=== PATIENT | female | born 1945 | race Caucasian/White ===

== ENCOUNTER → 2020-11-29 | Day surgery (SDC) | payer OTHER ==
--- NOTE | 2020-11-29 10:09 | RAD REPORT ---
EXAM DESCRIPTION: Ultrasound-guided left axilla core biopsy CLINICAL HISTORY: Left axillary mass N63.20 COMPARISON: No comparisons FINDINGS: Informed consent was obtained and time-out was performed. The patient's left breast/axilla was prepped and draped in the usual sterile fashion. 1% lidocaine wa s used for local anesthetic purposes. Utilizing aseptic technique and ultrasound guidance, a 18 gauge core biopsy device was used to obtain 2 core specimens through the 13 mm mass of interest in the left axilla. All collected material was sent for cytology. Patient tolerated procedure well. IMPRESSION: Successful ultrasound guided left axillary mass core biopsy.
== END ==
LOC: DS 09:00
PROVIDERS: ATTEND Family Medicine
DX: N63.20 Unspecified lump in the left breast, unspecified quadrant (principal)
CPT/HCPCS: 19083; 88305

== ENCOUNTER 2023-12-07 15:23 | Observation (INO) | payer OTHER ==
--- OUTSIDE RECORDS SUMMARY | 2023-12-07 15:26 | XMS REPORT | Continuity of Care Document ---
Author Name Unknown Address [address] [place] [address] [email or web address] Address [address] [place] [address] Care Team Providers Care [employer] Boss Name Role Phone Ozzie Franklin Attending Clinician Unavailable LUKAS HOPPER Attending Clinician Unavailable Payers Payer Name Policy Type Policy Number Effective Date Expirati on Date Source MEDICARE PART A \T\ [id number] 2011 00:00:00 Problems Condition Name Condition Details Condition Category Status Onset Date Resolution Date Last Treatment Date Treating Clinician Comments Source [id number] Recurrent gross hematuria Problem [facility] [id number] Kidney lesion, [place], right Problem [facility] [id number] Simple renal cyst Problem [facility] [id number] Cyst of right kidney Problem [facility] [id number] Gross hematuria Problem [facility] [id number] Lower urinary tract symptoms (LUTS) Problem [facility] Allergies, Adverse Reactions, Alerts Allergy Name Allergy Type Status Severity Reaction(s) Onset Date Inactive Date Treating Clinician Comments Source NO KNOWN ALLERGIE S Drug Class Active [facility] Social History Social Habit Start Date Stop Date Quantity Comments Source History of Tobacco Use [facility]igned At [facility] Smoking Status Start Date Stop Date Source Never Smoker [facility] Medications Ordered Medication Name Filled Medication Name Start Date Stop Date Current Medication? Ordering Clinician Indication Dosage Frequency Signature (SIG) Comments Components Source Ramipril 10 MG Ramipril 10 MG No 1{capsu le} QD Ramipril 10 MG Janumet 50-1000 MG Janumet 50-1000 MG No 1{table t_with_ meals} BID Janumet 50-1000 MG Carvedilol 12.5 MG Carvedilol 12.5 MG No 1{table t_with_ food} BID Carvedilol 12.5 MG Levothyroxi ne Sodium 100 MCG Levothyroxi ne Sodium 100 MCG No QD Levothyrox ine Sodium 100 MCG Ramipril 10 MG Ramipril 10 MG No 1{capsu le} QD Ramipril 10 MG Janumet 50-1000 MG Janumet 50-1000 MG No 1{table t_with_ meals} BID Janumet 50-1000 MG Carvedilol 12.5 MG Carvedilol 12.5 MG No 1{table t_with_ food} BID Carvedilol 12.5 MG Levothyroxi ne Sodium 100 MCG Levothyroxi ne Sodium 100 MCG No QD Levothyrox ine Sodium 100 MCG Levothyroxi ne Sodium 100 MCG Levothyroxi ne Sodium 100 MCG No QD Levothyrox ine Sodium 100 MCG Carvedilol 12.5 MG Carvedilol 12.5 MG No 1{table t_with_ food} BID Carvedilol 12.5 MG Janumet 50-1000 MG Janumet 50-1000 MG No 1{table t_with_ meals} BID Janumet 50-1000 MG Ramipril 10 MG Ramipril 10 MG No 1{capsu le} QD Ramipril 10 MG Levothyroxi ne Sodium 100 MCG Levothyroxi ne Sodium 100 MCG No QD Levothyrox ine Sodium 100 MCG Carvedilol 12.5 MG Carvedilol 12.5 MG No 1{table t_with_ food} BID Carvedilol 12.5 MG Janumet 50-1000 MG Janumet 50-1000 MG No 1{table t_with_ meals} BID Janumet 50-1000 MG Ramipril 10 MG Ramipril 10 MG No 1{capsu le} QD Ramipril 10 MG Vital Signs Vital Name Observation Time Observation Value Comments S ource height 2023-08-09 14:15:00 62 [in_i] Commo n [facility] weight 2023-08-09 14:15:00 164 [lb_av] Comm on [facility] temperature 2023-08-09 14:15:00 97.5 [degF] Com mon [facility] bmi 2023-08-09 14:15:00 29.99 kg/m2 Comm on [facility] oximetry 2023-08-09 14:15:00 96 % Commo n [facility] respiratory rate 2023-08-09 14:15:00 16 /min Common [facility] blood pressure systolic 2023-08-09 14:15:00 139 mm[Hg] [facility] blood pressure diastolic 2023-08-09 14:15:00 65 mm[Hg] Common [facility] height 2023-08-04 13:30:00 62 [in_i] Commo n [facility] weight 2023-08-04 13:30:00 163.6 [lb_av] Co mmon [facility] temperature 2023-08-04 13:30:00 97.6 [degF] Com mon [facility] bmi 2023-08-04 13:30:00 29.92 kg/m2 Comm on [facility] oximetry 2023-08-04 13:30:00 95 % Commo n [facility] respiratory rate 2023-08-04 13:30:00 18 /min Common [facility] blood pressure systolic 2023-08-04 13:30:00 141 mm[Hg] Common [facility] blood pressure diastolic 2023-08-04 13:30:00 65 mm[Hg] [facility] Procedures Procedure Date / Time Performed Performing Clinicia n Source PVR 2023-08-04 00:00:00 Common [facility] Encounters Start Date/Time End Date/Time Encounter Type Admission Type Attending Clinicians Care Facility Care Department Encounter ID Source 2023-10-07 10:52:01 Outpatient Ozzie Franklin [facility] [id number] [facility] 2023-08-09 13:03:01 Outpatient Ozzie Franklin [facility] [id number] [facility] 2023-08-04 12:58:00 Outpatient Ozzie Franklin [facility] [id number] [facility] 2023-08-25 00:00:00 2023-08-25 00:00:00 OFFICE VISIT ESTAB PT LEVEL 3 [facility] [id number] [facility] 2023-08-09 00:00:00 2023-08-09 00:00:00 (PROC) Procedure [facility] [id number] [facility] 2023-08-04 00:00:00 2023-08-04 00:00:00 OFFICE VISIT NEW PT LEVEL 3 [facility] [id number] [facility] 2020-07-24 12:50:00 2020-07-24 12:50:[address] [facility] [id number] [facility] 2020-06-26 12:20:00 2020-06-26 12:20:[address] [facility] [id number] [facility]
[2023-12-07] MEDS ORDERED: ONDANSETRON 4 MG/2 ML VIAL ONE (19:05)
[2023-12-07] MEDS ORDERED: MORPHINE 2 MG/ML SYR ONE (19:05)
[2023-12-07] MEDS ORDERED: FAMOTIDINE 20 MG/2 ML VIAL IV ONE (19:06)
[2023-12-07] MEDS ORDERED: NA CHLORIDE 0.9% 500 ML ONE (19:06)
[2023-12-07 19:41] LABS: PT Prothrombin Time 12.5 SECONDS (9.4-12.5); Protime INR 1.14
[2023-12-07 22:15] LABS: Sqamous Epithelial None Seen /HPF (None Seen); Urine Bacteria None Seen /HPF (<20); Urine Micro Reflex YN NO BILL MICROSCOPIC; Urine RBC >50 /HPF (None Seen); Urine WBC Clump Many /HPF (None Seen); Urine Yeast (Budding) Many /HPF (None Seen)
[2023-12-07 23:00] LABS: Specific Gravity 1.022 (1.005-1.030); Urine Bilirubin NEGATIVE (Negative); Urine Blood 2+ (Negative); Urine Clarity Extremely Turbid (Clear); Urine Color Light-Orange (Yellow); Urine Glucose 4+ (Over) (Negative); Urine Ketones 3+ (Negative); Urine Nitrite NEGATIVE (Negative); Urine Protein TRACE (Negative); Urine Urobilinogen Normal (Normal)
[2023-12-07 23:06] LABS: Absolute Basophils 0.2 K/uL (0-0.5); Absolute Lymphocytes (CBC) 2.1 K/uL (0.7-4.9); Absolute Monocytes 1.4 K/uL (0.1-1.3); Absolute Neutrophil 15.9 K/uL (1.8-8.0); Basophils % 0.9 % (0-1.3); Eosinophils % 0.1 % (0-4.4); Hematocrit 37.8 % (36.0-45.0); Hemoglobin 12.7 g/dL (12.0-15.0); Lymphocytes % 10.8 % (15.3-44.8); MCH 31.5 pg (27.0-35.0); MCHC 33.7 g/dL (32.0-36.0); MCV 93.4 fL (80-100); MPV 8.2 fL (7.6-11.3); Monocytes % 7.3 % (3.3-12.3); Neutrophils % 80.9 % (41.7-73.7); Platelets 345 thou/uL (152-406); RBC Red Blood Cell Count 4.04 M/uL (3.86-4.86); Red Cell Distribution Width 13.5 % (12.1-15.2)
[2023-12-07 23:29] LABS: Albumin 2.7 g/dL (3.4-5.0); Albumin/Globulin Ratio 0.5 (1.1-1.8); Alkaline Phosphatase 69 U/L (45-117); Anion Gap 15.9 mEq/L (5.0-15.0); BUN Blood Urea Nitrogen 43 mg/dL (7-18); Bicarbonate 20 mEq/L (21-32); Bilirubin Direct 0.2 mg/dL (0-0.2); Bilirubin Indirect, Calculated 0.8 mg/dL (0.2-0.8); Globulin 5.2 g/dL (2.3-3.5); Glomerular Filtration Rate 59 ml/min (=/>90); Glucose Level 206 mg/dL (74-106); Lipase 38 U/L (13-75); Magnesium 2.1 mg/dL (1.6-2.4); Potassium 3.9 mEq/L (3.5-5.1); Protein, Total 7.9 g/dL (6.4-8.2); Sodium Level 132 mEq/L (136-145); Troponin High Sensitivity 10.5 pg/mL (<58.9)
[2023-12-07 23:30] LABS: ALT/SGPT < 14 U/L (13-56); AST/SGOT < 10 U/L (15-37)
--- NOTE | 2023-12-08 00:50 | ER ---
Nurse's Notes [facility] Name: Laurie Trammell Age: 78 yrs Sex: Female : 1945 Arrival Date: 12/07/2023 Time: 15:23 Bed 28 Private MD: Diagnosis: Left sided colitis without complications;Sepsis, unspecified organism Presentation: 12/06 15:39 Chief complaint: Patient states: nausea, vomiting x2 days. Coronavirus screen: At this as6 time, the client does not indicate any symptoms associated with coronavirus-19. Ebola Screen: No symptoms or risks identified at this time. Initial Sepsis Screen: Does the patient meet any 2 criteria? No. Patient's initial sepsis screen is negative. Does the patient have a suspected source of infection? No. Patient's initial sepsis screen is negative. Risk Assessment: Do you want to hurt yourself or someone else? Patient reports no desire to harm self or others. Onset of symptoms was December 05, 2023. 15:39 Method Of Arrival: Ambulatory as6 15:39 Acuity: NOEMY 3 as6 Triage Assessment: 15:41 General: Appears in no apparent distress. Behavior is calm, cooperative. Pain: as6 Complains of pain in epigastric area. GI: Reports upper abdominal pain, nausea, vomiting. Historical: - Allergies: 15:40 No Known Allergies; as6 - PMHx: 15:40 Diabetes - NIDDM; Hypertension; as6 - PSHx: 15:40 None; as6 - Immunization history:: Adult Immunizations up to date. - Infectious Disease History:: Denies. - Social history:: Smoking status: Patient denies any tobacco usage or history of. Screenin:[facility] Fall Risk Assessment (Adult) History of falling in the last 3 months, ha1 including since admission No falls in past 3 months (0 pts) Confusion or Disorientation No (0 pts) Intoxicated or Sedated No (0 pts) Impaired Gait No (0 pts) Mobility Assist Device Used Yes (1 pt) Altered Elimination No (0 pt) Score/Fall Risk Level 0 - 2 = Low Risk Oriented to surroundings, Maintained a safe environment, Educated pt \T\ family on fall prevention, incl call for assistance when getting out of bed, Hourly rounding (assess needs \T\ fall precautionary measures) done. Abuse screen: Denies threats or abuse. Denies injuries from another. Nutritional screening: No deficits noted. Tuberculosis screening: No symptoms or risk factors identified. Assessment: 19:00 General: Appears uncomfortable, Behavior is calm, cooperative. Pain: Complains of pain ha1 in epigastric area Pain does not radiate. Pain currently is 8 out of 10 on a pain scale. Quality of pain is described as burning, pressure, Pain began gradually, 2-3 days ago. Neuro: Level of Consciousness is awake, alert, obeys commands, Oriented to person, place, time, situation. Cardiovascular: Capillary refill < 3 seconds Patient's skin is warm and dry. Respiratory: Airway is patent Respiratory effort is even, unlabored, Respiratory pattern is regular, symmetrical. GI:. GI: Abdomen is round non-distended, Bowel sounds present X 4 quads. Reports epigastric pain, nausea, vomiting. : No signs and/or symptoms were reported regarding the genitourinary system. Derm: Skin is pink, warm \T\ dry. 20:00 Reassessment: Patient and/or family updated on plan of care and expected duration. Pain ha1 level reassessed. Patient is alert, oriented x 3, equal unlabored respirations, skin warm/dry/pink. pain 2/10 Patient states feeling better. Patient states symptoms have improved. 21:00 Reassessment: Patient and/or family updated on plan of care and expected duration. Pain ha1 level reassessed. Patient is alert, oriented x 3, equal unlabored respirations, skin warm/dry/pink. 22:00 Reassessment: Patient and/or family updated on plan of care and expected duration. Pain ha1 level reassessed. Patient is alert, oriented x 3, equal unlabored respirations, skin warm/dry/pink. 23:00 Reassessment: Patient and/or family updated on plan of care and expected duration. Pain ha1 level reassessed. Patient is alert, oriented x 3, equal unlabored respirations, skin warm/dry/pink. Vital Signs: 15:39 BP 115 / 61; Pulse 115; Resp 18; Temp 97.1; Pulse Ox 99% ; Weight 68.04 kg; Height 5 as6 ft. 2 in. ; Pain 8/10; 19:20 BP 132 / 68; Pulse 93; Resp 17 S; Pulse Ox 99% on R/A; ha1 20:20 BP 127 / 60; Pulse 97; Resp 18 S; Pulse Ox 99% on R/A; ha1 21:30 BP 129 / 69; Pulse 99; Resp 20; Pulse Ox 100% on R/A; ha1 22:00 BP 130 / 68; Pulse 102; Resp 17 S; Pulse Ox 99% on R/A; ha1 23:00 BP 146 / 74; Pulse 99; Resp 17 S; Pulse Ox 99% on R/A; ha1 12/07 00:00 BP 149 / 72; Pulse 92; Resp 17 S; Pulse Ox 98% on R/A; ha1 00:45 BP 152 / 80; Pulse 96; Resp 17 S; Pulse Ox 99% on R/A; ha1 01:59 BP 141 / 75; Pulse 94; Resp 17; Temp 97.1; Pulse Ox 99% ; Pain 0/10; ha1 12/06 15:39 Body Mass Index 27.44 (68.04 kg, 157.48 cm) as6 12/06 15:39 Pain Scale: Adult as6 01:59 Pain Scale: Adult ha1 Marne Coma Score: 01:59 Eye Response: spontaneous(4). Motor Response: obeys commands(6). Verbal Response: ha1 oriented(5). Total: 15. ED Course: 12/06 15:27 Patient arrived in ED. mg5 15:40 Triage completed. as6 15:41 Arm band placed on left wrist. as6 15:42 Santos Hercules PA is PHCP. cp 15:42 Rodney Tran DO is Attending Physician. cp 19:00 Patient has correct armband on for positive identification. Bed in low position. Call ha1 light in reach. Side rails up X 1. Adult w/ patient. 19:05 Inserted saline lock: 20 gauge in left antecubital area, using aseptic technique. Blood ha1 collected. 19:35 EKG done, by ED staff, reviewed by Santos POLK. oe 21:33 Chest Single View In Process Unspecified. EDMS 21:45 Roxanna Greenberg, TENISHA is Primary Nurse. ha1 23:58 CT Abd/Pelvis - IV Contrast Only In Process Unspecified. EDMS 12/07 00:49 Ozzie Franklin MD is Hospitalizing Provider. cp 01:10 First set of blood cultures drawn by ED staff. ha1 01:25 Second set of blood cultures drawn by ED staff. ha1 01:58 No provider procedures requiring assistance completed. Patient admitted, IV remains in ha1 place. 01:59 Provided Education on: need for admission. ha1 Administered Medications: 12/06 19:10 Drug: NS 0.9% IV 500 ml IV at 500 ml/hr continuous Route: IV; Rate: 500 ml/hr; Site: ha left antecubital; 12/07 01:57 Follow up: Response: No adverse reaction; IV Status: Completed infusion; IV Intake: ha1 500ml 12/06 19:12 Drug: Famotidine IVP 20 mg IVP once; dilute with 10 mL 0.9% NaCl; give over 2 minutes [facility] Route: IVP; Site: left antecubital; 12/07 01:58 Follow up: Response: No adverse reaction [facility] 12/06 19:14 Drug: Ondansetron IVP 4 mg IVP once; over 2 minutes Route: IVP; Site: left antecubital; [facility] 12/07 01:58 Follow up: Response: No adverse reaction [facility] 12/06 19:22 Not Given (Patient Refused): morphineor iv 2 mg IVP once over 4 mins [facility] 12/07 01:25 Drug: metroNIDAZOLE IVPB 500 mg 100 ml IVPB once over 30 mins Volume: 100 ml; Route: ha1 IVPB; Infused Over: 30 mins; Site: left antecubital; 01:57 Follow up: Response: No adverse reaction; IV Status: Completed infusion; IV Intake: ha1 100ml 01:57 Drug: Ciprofloxacin IVPB 400 mg 200 ml IVPB once over 60 mins Volume: 200 ml; Route: ha1 IVPB; Infused Over: 60 mins; Site: left antecubital; 02:00 Follow up: Response: No adverse reaction; IV Status: Infusion continued upon admission [facility] Medication: 12/06 19:41 VIS not applicable for this client. ha1 Intake: 12/07 01:57 IV: 100ml; Total: 100ml. ha 01:57 IV: 500ml; Total: 600ml. 1 Outcome: 00:50 Decision to Hospitalize by Provider. cp 01:59 Admitted to ER Hold. [facility]. ha05 31:59 Condition: stable 01:59 Instructed on the need for admit, 13:37 Patient left the ED. eb Signatures: Dispatcher [employer] EDMS Satnos Hercules PA PA cp Espinosa, Orlando oe Botello, Elizabeth eb Slawson, Ashby, RN RN as6 Roxanna Greenberg RN RN ha1 [place] [id number]
--- NOTE | 2023-12-08 00:51 | EDPHYS ---
Physician Documentation [facility] Name: Laurie Trammell Age: 78 yrs Sex: Female : 1945 Arrival Date: 12/07/2023 Time: 15:23 Bed 28 Private MD: ED Physician Rodney Tran HPI: 12/06 18:54 This 78 yrs old Female presents to ER via Ambulatory with complaints of Nausea/Vomiting.cp 18:55 The patient presents to the emergency department with nausea, that is moderate, cp vomiting, that is intermittent, abdominal pain. Onset: The symptoms/episode began/occurred 2 day(s) ago. 18:55 Possible causes: unknown. Associated signs and symptoms: Pertinent positives: anorexia, cp diarrhea, Pertinent negatives: constipation, fever. Severity of symptoms: in the emergency department the symptoms are unchanged despite home interventions. Historical: - Allergies: 15:40 No Known Allergies; as6 - PMHx: 15:40 Diabetes - NIDDM; Hypertension; as6 - PSHx: 15:40 None; as6 - Immunization history:: Adult Immunizations up to date. - Infectious Disease History:: Denies. - Social history:: Smoking status: Patient denies any tobacco usage or history of. ROS: 18:57 Constitutional: Positive for poor PO intake, Negative for body aches, chills, fever, cp 18:57 Abdomen/GI: Positive for abdominal pain, nausea and vomiting, diarrhea, anorexia, cp Negative for constipation, hematemesis, 18:57 Eyes: Negative for injury, pain, redness, and discharge, cp 18:57 Cardiovascular: Positive for chest pressure, Negative for edema, palpitations, 18:57 Respiratory: Negative for cough, shortness of breath, wheezing, 18:57 Neuro: Negative for altered mental status, 18:57 All other systems are negative, cp Exam: 19:00 Constitutional: The patient appears in no acute distress, alert, awake, cp non-diaphoretic, non-toxic, well developed, well nourished, 19:00 Head/Face: Normocephalic, atraumatic. cp 19:00 Eyes: Periorbital structures: appear normal, Conjunctiva: normal, no exudate, no injection, Sclera: no appreciated abnormality, Lids and lashes: appear normal, bilaterally, 19:00 ENT: External ear(s): are unremarkable, Nose: is normal, Mouth: Lips: moist, Oral mucosa: pink and intact, moist, Posterior pharynx: is normal, airway is patent, no erythema, no exudate, 19:00 Chest/axilla: Inspection: normal, 19:00 Cardiovascular: Rate: tachycardic, Rhythm: regular, Edema: is not appreciated, JVD: is not appreciated, 19:00 Respiratory: the patient does not display signs of respiratory distress, Respirations: normal, no use of accessory muscles, no retractions, labored breathing, is not present, Breath sounds: are clear throughout, no decreased breath sounds, no stridor, no wheezing, 19:00 Abdomen/GI: Inspection: abdomen appears normal, Bowel sounds: active, all quadrants, Palpation: soft, in all quadrants, mild abdominal tenderness, in the right lower quadrant and left lower quadrant, rebound tenderness, is not appreciated, involuntary guarding, is not appreciated, 19:00 Back: pain, is absent, ROM is normal, 19:00 Neuro: Orientation: to person, place \T\ time. Mentation: is normal, Motor: moves all fours, no focal deficits, 19:15 ECG was reviewed by the Attending Physician. cp Vital Signs: 15:39 BP 115 / 61; Pulse 115; Resp 18; Temp 97.1; Pulse Ox 99% ; Weight 68.04 kg; Height 5 as6 ft. 2 in. ; Pain 8/10; 19:20 BP 132 / 68; Pulse 93; Resp 17 S; Pulse Ox 99% on R/A; ha1 20:20 BP 127 / 60; Pulse 97; Resp 18 S; Pulse Ox 99% on R/A; ha1 21:30 BP 129 / 69; Pulse 99; Resp 20; Pulse Ox 100% on R/A; ha1 22:00 BP 130 / 68; Pulse 102; Resp 17 S; Pulse Ox 99% on R/A; ha1 23:00 BP 146 / 74; Pulse 99; Resp 17 S; Pulse Ox 99% on R/A; ha1 07/10 00:00 BP 149 / 72; Pulse 92; Resp 17 S; Pulse Ox 98% on R/A; ha1 00:45 BP 152 / 80; Pulse 96; Resp 17 S; Pulse Ox 99% on R/A; ha1 01:59 BP 141 / 75; Pulse 94; Resp 17; Temp 97.1; Pulse Ox 99% ; Pain 0/10; ha1 12/06 15:39 Body Mass Index 27.44 (68.04 kg, 157.48 cm) as6 07 15:39 Pain Scale: Adult as6 01:59 Pain Scale: Adult ha1 Anil Coma Score: 01:59 Eye Response: spontaneous(4). Motor Response: obeys commands(6). Verbal Response: ha1 oriented(5). Total: 15. MDM: 12/06 15:42 Patient medically screened. cp 20:00 Differential diagnosis: gastritis, cholecystitis, diverticulitis, viral cp gastroenteritis, gastroenteritis, colitis. 12/07 00:55 Data reviewed: vital signs, nurses notes, lab test result(s), EKG, radiologic studies, cp CT scan, plain films, and as a result, I will admit patient. 00:55 Consideration of Admission/Observation Patient was admitted/placed on observation. I cp considered the following discharge prescriptions or medication management in the emergency department Medications were administered in the Emergency Department. See MAR. Independent interpretation of the following test(s) in the Emergency Department EKG: See my EKG interpretation above. Care significantly affected by the following chronic conditions: Diabetes, Hypertension. Counseling: I had a detailed discussion with the patient and/or guardian regarding the historical points, exam findings, and any diagnostic results supporting the discharge/admit diagnosis, lab results, radiology results, the need for further work-up and treatment in the hospital. Response to treatment: the patient's symptoms have mildly improved after treatment. 12/06 18:57 Order name: Urinalysis W/Microscopic; Complete Time: 23:37 cp 12/06 23:38 Interpretation: Normal except: [facility] Extremely Turbid; UGLUC 4+ (Over); UKET 3+; UBLD cp 2+; UPROT TRACE; URBC >50; UESTR 500; UWBC Clump Many; BYST Many. 12/06 21:05 Order name: Protime (+INR); Complete Time: 22:42 EDMS 12/06 22:41 Interpretation: Within normal limits. cp 12/06 21:06 Order name: Basic Metabolic Panel; Complete Time: 23:37 EDMS 12/06 23:38 Interpretation: Normal except: NA 132; CO2 20; ANION GAP 15.9; GLUC 206; BUN 43; GFR 59. 12/06 21:06 Order name: Liver (Hepatic) Function; Complete Time: 23:37 EDSD 12/06 23:38 Interpretation: Normal except: AST < 10; ALB 2.7; GLOB 5.2; A/G 0.5. 12/06 21:06 Order name: Troponin High Sensitivity; Complete Time: 23:37 EDSD 12/06 21:06 Order name: Magnesium; Complete Time: 23:37 EDSD 12/06 21:06 Order name: Lipase; Complete Time: 23:37 EDMS 12/06 21:06 Order name: CBC with Automated Diff; Complete Time: 23:37 EDSD 12/06 23:39 Interpretation: Normal except: WBC 19.70; WARREN% 80.9; LYM% 10.8; NEUT A 15.9; MNA 1.4. 12/07 00:48 Order name: Lactate w/ 2H reflex if indic.; Complete Time: 02:07 12/07 00:48 Order name: Blood Culture Adult (2) 12/07 00:51 Order name: Ova And Parasites 12/07 00:51 Order name: Rotavirus Antigen 12/07 00:51 Order name: Stool Culture 12/07 00:51 Order name: CDIFF 12/07 02:37 Order name: Basic Metabolic Panel [facility] 12/07 02:37 Order name: Basic Metabolic Panel [facility] 12/07 02:37 Order name: CBC with Automated Diff [facility] 12/07 02:37 Order name: CBC with Automated Diff [facility] 12/07 02:37 Order name: Lipase EDSD 12/07 02:37 Order name: Lipase EDSD 12/07 02:37 Order name: Liver (Hepatic) Function EDSD 12/07 02:37 Order name: Liver (Hepatic) Function EDSD 12/07 07:54 Order name: Glucose, Ancillary Testing EDSD 12/07 11:41 Order name: Glucose, Ancillary Testing EDSD 12/06 21:06 Order name: Chest Single View EDSD 12/06 22:14 Order name: CT Abd/Pelvis - IV Contrast Only 12/06 18:56 Order name: EKG; Complete Time: 21:06 cp 12/06 18:56 Order name: Cardiac monitoring; Complete Time: 19:23 12/06 18:56 Order name: EKG - Nurse/Tech; Complete Time: 19:23 cp 12/06 18:56 Order name: IV Saline Lock; Complete Time: 19:23 cp 12/06 18:56 Order name: Labs collected and sent; Complete Time: 19:23 cp 12/06 18:56 Order name: O2 Per Protocol; Complete Time: 19:23 cp 12/06 18:56 Order name: O2 Sat Monitoring; Complete Time: 19:23 cp EC/09 19:15 Rate is 96 beats/min. Rhythm is regular. ND interval is normal. QRS interval is normal. cp QT interval is normal. T waves are Inverted in lead aVR. Interpreted by me. Reviewed by me. Administered Medications: 19:10 Drug: NS 0.9% IV 500 ml IV at 500 ml/hr continuous Route: IV; Rate: 500 ml/hr; Site: [facility] left antecubital; 12/07 01:57 Follow up: Response: No adverse reaction; IV Status: Completed infusion; IV Intake: ha1 500ml 12/06 19:12 Drug: Famotidine IVP 20 mg IVP once; dilute with 10 mL 0.9% NaCl; give over 2 minutes [facility] Route: IVP; Site: left antecubital; 12/07 01:58 Follow up: Response: No adverse reaction [facility] 12/06 19:14 Drug: Ondansetron IVP 4 mg IVP once; over 2 minutes Route: IVP; Site: left antecubital; [facility] 12/07 01:58 Follow up: Response: No adverse reaction [facility] 12/06 19:22 Not Given (Patient Refused): morphineor iv 2 mg IVP once over 4 mins [facility] 12/07 01:25 Drug: metroNIDAZOLE IVPB 500 mg 100 ml IVPB once over 30 mins Volume: 100 ml; Route: ha1 IVPB; Infused Over: 30 mins; Site: left antecubital; 01:57 Follow up: Response: No adverse reaction; IV Status: Completed infusion; IV Intake: ha1 100ml 01:57 Drug: Ciprofloxacin IVPB 400 mg 200 ml IVPB once over 60 mins Volume: 200 ml; Route: ha1 IVPB; Infused Over: 60 mins; Site: left antecubital; 02:00 Follow up: Response: No adverse reaction; IV Status: Infusion continued upon admission [facility] Disposition: 12/06 20:56 I was immediately available on-site in the Emergency Department for consultation in the ms3 care of the patient. Disposition Summary: 12/08/23 00:50 Hospitalization Ordered Notes: Hospitalization Status: Inpatient Admission cp Provider: Ozzie Franklin cp Condition: Fair cp Problem: new cp Symptoms: have improved cp Bed/Room Type: Standard cp Location: [facility] ER HOLD(12/08/23 01:14) Room Assignment: ERHOLD-(12/08/23 01:14) cg Diagnosis - Left sided colitis without complications cp - Sepsis, unspecified organism cp Forms: - Medication Reconciliation Form cp - SBAR form cp - Leadership Thank You Letter cp Signatures: Dispatcher [employer] EDSD Santos Hercules PA PA cp Garcia, Cindy, TENISHA RN cg Rodney Tran DO DO ms3 Bairon Chong RN RN as6 Roxanna Greenberg RN RN ha1 Corrections: (The following items were deleted from the chart) 21:06 21:06 Urinalysis W/Microscopic+U.LAB.BRZ ordered. EDSD EDMS 21:27 21:06 Chest Single View+RAD.RAD.BRZ ordered. EDSD EDMS 22:08 21:06 BASIC METABOLIC PANEL+C.LAB.BRZ ordered. EDSD EDMS 22:08 21:06 CBC+H.LAB.BRZ ordered. EDSD EDMS 22:08 21:06 HEPATIC FUNCTION+C.LAB.BRZ ordered. EDSD EDMS 22:08 21:06 MAGNESIUM+C.LAB.BRZ ordered. EDSD EDMS 22:08 21:06 Troponin High Sensitivity+C.LAB.BRZ ordered. EDSD EDMS 22:08 21:06 LIPASE+C.LAB.BRZ ordered. EDSD EDMS 22:45 21:06 PROTIME (+INR)+COAG.LAB.BRZ ordered. EDSD EDSD 12/07 00:51 00:51 Ova and Parasites+MR.LAB.BRZ ordered. EDSD EDMS 00:51 00:51 Rotavirus Antigen+BA.LAB.BRZ ordered. EDSD EDMS 00:51 00:51 Stool Culture+BA.LAB.BRZ ordered. EDSD EDMS 00:51 00:51 C.difficile GDH Ag \T\ Toxin AB+LAB.BRZ ordered. EDMS EDMS 01:14 00:50 Telemetry/MedSurg (Inpatient) cp cg 01:14 00:50 cp cg
[2023-12-08] MEDS ORDERED: METRONIDAZOLE 500mg IVPB 500 MG/100 ML BAG IV ONE ×2 (01:16→09:15)
[2023-12-08] MEDS ORDERED: CIPROFLOXACIN 400mg IV 400 MG/200 ML BAG IV ONE ×2 (01:16→12:12)
[2023-12-08] MEDS ORDERED: ONDANSETRON 4 MG/2 ML VIAL IV PRN (02:32)
[2023-12-08] MEDS ORDERED: MORPHINE 4 MG/ML SYR IV PRN (02:32)
[2023-12-08] MEDS: NA CHLORIDE 0.9% 1,000 ML IV SCH (03:00)
[2023-12-08] MEDS ORDERED: NA CHLORIDE 0.9% 1,000 ML ONE (03:27)
[2023-12-08 04:01] VITALS: BMI 26.5
--- NOTE | 2023-12-08 06:59 | P.HP ---
Certification for Inpatient Patient admitted to: Inpatient Practitioner: I am a practitioner with admitting privileges, knowledge of patient current condition, hospital course, and medical plan of care. Services: Services provided to patient in accordance with Admission requirements found in Title 42 Section 412.3 of the Code of Federal Regulations Patient History Date of Service: 12/09/23 Primary Care Provider: Rigoberto Reason for admission: Colitis History of Present Illness: 78-year-old female with a past medical Diabetes - NIDDM; Hypertension;presented to the emergency room with nausea vomiting diarrhea. She reports symptoms worse in the last 24 hours, she reports associated abdominal pain, poor appetite. Abdominal pain is lower quadrant, 8 out of 10, constant de scribed as cramping,. She denies chest pain, shortness of breath fever, chills, body aches, constipation, bloody stools, ER evaluation 9 BP 115 / 61; Pulse 115; Resp 18; Temp 97.1; Pulse Ox 99% ; Weight 68.04 kg; Height 5 6. ft. 2 in. ; Pain 8/10; EKG 5 Rate is 96 beats/min. Rhythm is regular. MN interval is normal. QRS interval is normal. QT interval is normal. T waves are Inverted in lead aVR. CT of the abdomen pelvis reveals colitis, plan to admit for sepsis, with colitis, Allergies No Known Allergies Allergy (Unverified 02/24/16 20:08) Home Medications: Aspirin 81 mg PO DAILY 12/08/23 Carvedilol [Coreg] 12.5 mg PO BID 12/08/23 Ciprofloxacin HCl [Cipro 500 MG Tablet] 500 mg PO DAILY 14 Days #28 tab 12/08/23 Dapagliflozin Propanediol [Farxiga] 10 mg PO DAILY 12/08/23 Multivitamin [Multiple Vitamins] 1 each PO DAILY 12/08/23 Ondansetron [Zofran] 4 mg PO Q6H PRN 10 Days #30 tab 12/08/23 Ramipril [Altace] 10 mg PO BID 12/08/23 Tirzepatide [Mounjaro] 5 mg SQ EVERY 7TH DAY 12/08/23 metroNIDAZOLE [Flagyl] 500 mg PO Q8H 14 Days #42 tab 12/08/23 - Past Medical/Surgical History Has patient received pneumonia vaccine in the past: Yes Diabetic: Yes -: DM -: HTN - Social History Smoking Status: Never smoker Alcohol use: No CD- Drugs: No Caffeine use: Yes Place of Residence: Home Review of Systems Per HPI Physical Examination - Vital Signs Temperature: 97.7 F Blood Pressure: 124/62 Pulse: 98 Respirations: 15 Pulse Ox (%): 93 - Physical Exam General: Alert, In no apparent distress, Oriented x3 HEENT: Atraumatic, Normocephalic Neck: Supple, JVD not distended Respiratory: Clear to auscultation bilaterally, Normal air movement Cardiovascular: Normal pulses, Regular rate/rhythm Capillary refill: <2 Seconds Gastrointestinal: Normal bowel sounds, Other (Lower abdominal tender) Musculoskeletal: No swelling, No contractures Integumentary: No breakdown, No significant lesion Neurological: Normal speech, Normal strength at 5/5 x4 extr - Studies Laboratory Data (last 24 hrs) 12/07/23 12/07/23 12/07/23 22:48 22:48 19:07 WBC 19.70 H Hgb 12.7 Hct 37.8 Plt Count 345 PT 12.5 INR 1.14 Sodium 132 L Potassium 3.9 BUN 43 H Creatinine 0.99 Glucose 206 H Magnesium 2.1 Total Bilirubin 1.0 AST < 10 L ALT < 14 Alkaline Phosphatase 69 Lipase 38 12/07/23 12/07/23 12/07/23 18:56 18:56 18:56 WBC Cancelled Hgb Cancelled Hct Cancelled Plt Count Cancelled PT Cancelled INR Cancelled Sodium Cancelled Potassium Cancelled BUN Cancelled Creatinine Cancelled Glucose Cancelled Magnesium Cancelled Total Bilirubin Cancelled AST Cancelled ALT Cancelled Alkaline Phosphatase Cancelled Lipase Cancelled Assessment and Plan - Plan Assessment plan Colitis Abdominal pain, Nausea vomiting diarrhea IV fluids, IV antibiotics, presented to the emergency room with nausea vomiting diarrhea. She reports symptoms worse in the last 24 hours, she reports associated abdominal pain, poor appetite. Abdominal pain is lower quadrant, 8 out of 10, constant described as cramping,. She denies chest pain, shortness of breath fever, chills, body aches, constipation, bloody stools, ER evaluation 9 BP 115 / 61; Pulse 115; Resp 18; Temp 97.1; Pulse Ox 99% ; Weight 68.04 kg; Height 5 6. ft. 2 in. ; Pain 8/10; EKG 5 Rate is 96 beats/min. Rhythm is regular. MN interval is normal. QRS interval is normal. QT interval is normal. T waves are Inverted in lead aVR. CT of the abdomen pelvis reveals colitis, diabetes - NIDDM Accu-Cheks, Sliding scale insulin hypertension Resume appropriate home meds Full code DVT SCDs Diet ice chips Disposition Home independent prior Discharge Plan: Home - Advance Directives Does patient have a Living Will: Yes Does patient have a Durable POA for Healthcare: No - Code Status/Comfort Care Code Status: Full Code Critical Care: No Time Spent Managing Pts Care (In Minutes): 55
[2023-12-08] MEDS: INSULIN REGULAR (HUMAN) 100 UNIT/ML SQ SCH (07:30)
[2023-12-08] MEDS ORDERED: NA CHLORIDE 0.9% 1,000 ML IV SCH (08:00)
[2023-12-08 08:59] VITALS: O2SAT 96
[2023-12-08] MEDS: METRONIDAZOLE 500mg IVPB 500 MG/100 ML BAG IV SCH (09:00)
[2023-12-08] MEDS ORDERED: ASPIRIN 81 MG CHEWABLE TABLET ONE (09:15)
[2023-12-08] MEDS: ramipriL 5 MG CAP PO SCH (09:19)
[2023-12-08] MEDS: ASPIRIN 81 MG CHEWABLE TABLET PO SCH (09:19)
[2023-12-08] MEDS: carvediloL 12.5 MG TAB PO SCH (09:19)
--- NOTE | 2023-12-08 12:10 | RAD REPORT ---
EXAM DESCRIPTION: RAD - Chest Single View - 12/07/2023 9:32 pm CLINICAL HISTORY: The patient is 78 years old and is Female; PAIN TECHNIQUE: Frontal view of the chest. COMPARISON: No relevant prior studies available. FINDINGS: LUNGS: Unremarkable. No consolidation. PLEURAL SPACE: Unremarkable. No pneumothorax. HEART: Unremarkable. No cardiomegaly. MEDIASTINUM: Unremarkable. Normal mediastinal contour. BONES/JOINTS: Multilevel degenerative change of the spine is present. No acute fracture. VASCULATURE: Atherosclerosis of the aorta is present. UPPER ABDOMEN: Unremarkable as visualized. IMPRESSION: No acute cardiopulmonary process. Electronically signed by: Betty Clements MD 12/07/2023 09:48 PM CDT RP Due to temporary technical issues with the PACS/Fluency reporting system, reports are being signed by the in house radiologist without review as a courtesy to ensure prompt reporting. The interpreting r adiologist is fully responsible for the content of the report.
--- NOTE | 2023-12-08 12:11 | EKG ---
Test Date: 2023-12-07 Test Time: 19:09:59 Foundry Equipment Mechanic: NICHOLAS MEASUREMENT RESULTS: Intervals: Rate: 96 WA: 140 QRSD: 86 QT: 356 QTc: 449 [place]: P: 40 WA: 140 QRS: -21 T: 20 INTERPRETIVE STATEMENTS: Normal sinus rhythm Inferior infarct, age undetermined Abnormal ECG No previous ECG available for comparison Electronically Signed On 12-08-23 12:10:01 CDT by Simon Crump
[2023-12-08] MEDS: CIPROFLOXACIN 400mg IV 400 MG/200 ML BAG IV SCH (12:15)
--- NOTE | 2023-12-08 12:33 | RAD REPORT ---
EXAM DESCRIPTION: CT - Abdomen Pelvis W Contrast - 12/07/2023 11:56 pm CLINICAL HISTORY: The patient is 78 years old and is Female; ABD PAIN TECHNIQUE: Axial computed tomography images of the abdomen and pelvis with intravenous contrast. S agittal and coronal reformatted images were created and reviewed. This CT exam was performed using one or more of the following dose reduction techniques: automated exposure control, adjustment of t he mA and/or kV according to patient size, and/or use of iterative reconstruction technique. COMPARISON: No relevant prior studies available. FINDINGS: Lung bases: Unremarkable. No mass. No consolidation. ABDOMEN: Liver: Unremarkable. No mass. Gallbladder and bile ducts: Unremarkable. No calcified stones. No ductal dilation. Pancreas: Unremarkable. No mass. No ductal dilation. Spleen: Calcified granulomas in the liver and spleen. Adrenals: Unremarkable. No mass. Kidneys and ureters: Simple cyst in the right kidney. No follow-up imaging is recommended. No hydronephrosis. Stomach and bowel: Mucosal thickening with adjacent stranding involving the left colon suggestive of colitis. Sigmoid diverticulosis. No obstruction. PELVIS: Appendix: The appendix is normal. Bladder: Unremarkable. Reproductive: Unremarkable as visualized. ABDOMEN and PELVIS: Intraperitoneal space: Unremarkable. No free air. No significant fluid collection. Bones/joints: Minimal anterolisthesis of L4 on L5. Disc space narrowing with degenerative endplate changes at L5-S1. No acute fracture. No dislocation. Soft tissues: Unremarkable. Vasculature: Unremarkable. No abdominal aortic aneurysm. Lymph nodes: Unremarkable. No enlarged lymph nodes. IMPRESSION: Mucosal thickening with adjacent stranding involving the left colon suggestive of coliti s. Electronically signed by: Tony Goldberg MD 12/08/2023 12:28 AM [facility] 8 Due to temporary technical issues with the PACS/Fluency reporting system, reports are being signed by the in house radiologist without review as a courtesy to ensure prompt reporting. The interpreting r adiologist is fully responsible for the content of the report.
--- NOTE | 2023-12-08 12:48 | P.DS ---
Admission Date: 12/08/23 Discharge Date: 12/08/23 Primary Care Provider: Rigoberto Disposition: ROUTINE DISCHARGE Discharge Condition: GOOD Reason for Admission: Colitis Brief History of Present Illness: 78-year-old female with a past medical Diabetes - NIDDM; Hypertension;presented to the emergency room with nausea vomiting diarrhea. She reports symptoms worse in the last 24 hours, she reports associated abdominal pain, poor appetite. Abdominal pain is lower quadrant, 8 out of 10, constant described as cramping,. She denies chest pain, shortness of breath fever, chills, body aches, constipation, bloody stools, ER evaluation 9 BP 115 / 61; Pulse 115; Resp 18; Temp 97.1; Pulse Ox 99% ; Weight 68.04 kg; Height 5 6. ft. 2 in. ; Pain 8/10; EKG 5 Rate is 96 beats/min. Rhythm is regular. WI interval is normal. QRS interval is normal. QT interval is normal. T waves are Inverted in lead aVR. CT of the abdomen pelvis reveals colitis, plan to admit for sepsis, with colitis, - Physical Exam General: Alert, In no apparent distress, Oriented x3 HEENT: Atraumatic, Normocephalic Neck: Supple, JVD not distended Respiratory: Clear to auscultation bilaterally, Normal air movement Cardiovascular: Normal pulses, Regular rate/rhythm Capillary refill: <2 Seconds Gastrointestinal: Normal bowel sounds, Other (Lower abdominal tenderness) Musculoskeletal: No swelling, No contractures Integumentary: No breakdown, No significant lesion Neurological: Normal speech, Normal strength at 5/5 x4 extr Hospital Course: 78-year-old female with a past medical Diabetes - NIDDM; Hypertension;presented to the emergency room with nausea vomiting diarrhea. Symptoms improved with IV fluids, IV antibiotics, as needed antiemetics. Ms. Escobar was noted to have colitis, treated with IV antibiotics, infectious disease consulted, patient is tolerating diet, plan to discharge home on p.o. antibiotics, follow-up with GI after discharge PROBLEM: Colitis, Acute cystitis treated with antibiotics, plan to discharge home on p.o. antibiotic discharged home on ciprofloxacin, Flagyl, Zofran Nausea vomiting diarrhea improved with IV fluids, as needed antiemetic Rad/Lab/Micro: CT of the abdomen pelvis reveals colitis,IMPRESSION: Mucosal thickening with adjacent stranding involving the left colon suggestive of colitis, no evidence of perforation UA positive for acute cystitis Continue home medicines as previously prescribed GOAL: Clear understanding of disease process INSTRUCTIONS: Physician Discharge Instructions: -Follow-up with PCP in 1 to 2 weeks -Please call Dr. Parson at [phone] if any questions regarding hospital stay -Please call nursing station at [phone] if any nursing or medication questions -Return to the emergency room if symptoms worsen Diet: ADA, low sodium Activity: Fall precautions Vital Signs/Physical Exam: Temp Pulse Resp BP Pulse Ox 97.9 F 80 18 118/62 98 12/08/23 12:00 12/08/23 12:00 12/08/23 12:00 12/08/23 12:00 12/08/23 12:00 Laboratory Data at Discharge: WBC 19.70 thou/uL (4.3-10.9) H 12/07/23 22:48 Hgb 12.7 g/dL (12.0-15.0) 12/07/23 22:48 Hct 37.8 % (36.0-45.0) 12/07/23 22:48 Plt Count 345 thou/uL (152-406) 12/07/23 22:48 PT 12.5 SECONDS (9.4-12.5) 12/07/23 19:07 INR 1.14 12/07/23 19:07 Sodium 132 mEq/L (136-145) L 12/07/23 22:48 Potassium 3.9 mEq/L (3.5-5.1) 12/07/23 22:48 BUN 43 mg/dL (7-18) H 12/07/23 22:48 Creatinine 0.99 mg/dL (0.55-1.02) 12/07/23 22:48 Glucose 206 mg/dL (74-106) H 12/07/23 22:48 Magnesium 2.1 mg/dL (1.6-2.4) 12/07/23 22:48 Total Bilirubin 1.0 mg/dL (0.2-1.0) 12/07/23 22:48 AST < 10 U/L (15-37) L 12/07/23 22:48 ALT < 14 U/L (13-56) 12/07/23 22:48 Alkaline Phosphatase 69 U/L (45-117) 12/07/23 22:48 Lipase 38 U/L (13-75) 12/07/23 22:48 Home Medications: Aspirin 81 mg PO DAILY 12/08/23 Carvedilol [Coreg] 12.5 mg PO BID 12/08/23 Ciprofloxacin HCl [Cipro 500 MG Tablet] 500 mg PO DAILY 14 Days #28 tab 12/08/23 Dapagliflozin Propanediol [Farxiga] 10 mg PO DAILY 12/08/23 Multivitamin [Multiple Vitamins] 1 each PO DAILY 12/08/23 Ondansetron [Zofran] 4 mg PO Q6H PRN 10 Days #30 tab 12/08/23 Ramipril [Altace] 10 mg PO BID 12/08/23 Tirzepatide [Mounjaro] 5 mg SQ EVERY 7TH DAY 12/08/23 metroNIDAZOLE [Flagyl] 500 mg PO Q8H 14 Days #42 tab 12/08/23 New Medications: Ciprofloxacin HCl [Cipro 500 MG Tablet] 500 mg PO DAILY 14 Days #28 tab metroNIDAZOLE [Flagyl] 500 mg PO Q8H 14 Days #42 tab Ondansetron [Zofran] 4 mg PO Q6H PRN 10 Days #30 tab PRN Reason: Nausea / Vomiting Physician Discharge Instructions: 78-year-old female with a past medical Diabetes - NIDDM; Hypertension;presented to the emergency room with nausea vomiting diarrhea. Noted to have colitis, treated with IV antibiotics, infectious disease consulted, patient is tolerating diet, plan to discharge home on p.o. antibiotics, follow-up with GI after discharge PROBLEM: Colitis, Acute cystitis treated with antibiotics, plan to discharge home on p.o. antibiotic discharged home on ciprofloxacin, Flagyl, Zofran Nausea vomiting diarrhea improved with IV fluids, as needed antiemetic Rad/Lab/Micro: CT of the abdomen pelvis reveals colitis,IMPRESSION: Mucosal thickening with adjacent stranding involving the left colon suggestive of colitis, no evidence of perforation UA positive for acute cystitis Continue home medicines as previously prescribed GOAL: Clear understanding of disease process INSTRUCTIONS: Physician Discharge Instructions: -Follow-up with PCP in 1 to 2 weeks -Please call Dr. Parson at [phone] if any questions regarding hospital stay -Please call nursing station at [phone] if any nursing or medication questions -Return to the emergency room if symptoms worsen Diet: ADA, low sodium Activity: Fall precautions Diet: Lane Activity: Fall precautions Followup: Ozzie Franklin MD [Primary Care Provider] - Toby Gotti MD [ASSOCIATE-ACTIVE - CAN ADMIT] - Time spent managing pt's care (in minutes): 55
[2023-12-09 18:56] VITALS: BP 124/62; TEMP 97.7
== END 2023-12-08 13:43 | disposition home or self-care (01) ==
LOC: ER 15:23 → INTOOBSV 12-08 02:31 → ERHOLD 12-08 02:31
PROVIDERS: ADMIT Hospitalist; ATTEND Hospitalist
DX: K52.9 Noninfective gastroenteritis and colitis, unspecified (principal); N30.00 Acute cystitis without hematuria; E11.9 Type 2 diabetes mellitus without complications; I10 Essential (primary) hypertension; Z79.82 Long term (current) use of aspirin
CPT/HCPCS: 36415; 71045; 74177; 80048; 80076; 81001; 82947; 83605; 83690; 83735; 84484; 85025; 85610; 87040; 93005; 96361; 96365; 96375; 99285; G0378; J0744; J2270; J2405; J7030; J7040; Q9967

== ENCOUNTER 2024-04-30 13:41 | Emergency (ER) | payer OTHER ==
[2024-04-30 14:53] LABS: Absolute Basophils 0.1 K/uL (0-0.5); Absolute Eosinophils 0.2 K/uL (0-0.5); Absolute Lymphocytes (CBC) 1.9 K/uL (0.7-4.9); Absolute Monocytes 0.6 K/uL (0.1-1.3); Absolute Neutrophil 3.8 K/uL (1.8-8.0); Basophils % 1.1 % (0-1.3); Eosinophils % 2.4 % (0-4.4); Hematocrit 37.3 % (36.0-45.0); Hemoglobin 12.4 g/dL (12.0-15.0); Lymphocytes % 28.6 % (15.3-44.8); MCH 31.7 pg (27.0-35.0); MCHC 33.3 g/dL (32.0-36.0); MCV 95.4 fL (80-100); Monocytes % 8.7 % (3.3-12.3); Neutrophils % 59.2 % (41.7-73.7); Platelets 328 thou/uL (152-406); RBC Red Blood Cell Count 3.91 M/uL (3.86-4.86); Red Cell Distribution Width 12.9 % (12.1-15.2)
[2024-04-30 14:58] LABS: PT Prothrombin Time 12.4 SECONDS (9.4-12.5); Protime INR 1.11
[2024-04-30 15:13] LABS: Albumin/Globulin Ratio 0.6 (1.1-1.8); Anion Gap 8.7 mEq/L (5.0-15.0); Bilirubin Direct 0.2 mg/dL (0-0.2); Bilirubin Indirect, Calculated 0.3 mg/dL (0.2-0.8); Bilirubin Total 0.5 mg/dL (0.2-1.0); Globulin 5.3 g/dL (2.3-3.5); Magnesium 1.9 mg/dL (1.6-2.4); Potassium 3.7 mEq/L (3.5-5.1); Protein, Total 8.3 g/dL (6.4-8.2); Troponin High Sensitivity 5.1 pg/mL (<58.9)
[2024-04-30] MEDS ORDERED: KETOROLAC 30 MG/ML INJ ONE (15:28)
[2024-04-30] MEDS ORDERED: dexAMETHasone 10 MG/ML VIAL ONE (15:28)
--- NOTE | 2024-04-30 15:28 | RAD REPORT ---
EXAMINATION: ONE VIEW CHEST XR CLINICAL INDICATION: CHEST PAIN TECHNIQUE: Frontal chest projection is submitted. Examination is limited by patient positioning and t echnique. COMPARISON: 12/07/2023 FINDINGS: The lungs are well inflated and clear. The heart is upper limit of normal in size. No displaced fract ures identified. IMPRESSION: No acute intrathoracic abnormalities.
--- NOTE | 2024-04-30 16:00 | RAD REPORT ---
EXAMINATION: US RIGHT UPPER EXTREMITY VENOUS DOPPLER CLINICAL INDICATION: PAIN RIGHT TECHNIQUE: Complete bilateral duplex sonography of the RIGHT upper extremity veins was performed. The examination included compression for vein patency, color Doppler imaging and flow augmentation in response to distal compression of the internal jugular, brachiocephalic, subclavian, axillary, brachi al, radial, ulnar, cephalic and basilic veins. COMPARISON: No prior exam. FINDINGS: Duplex sonography testing of the veins of the RIGHT upper extremity was performed. Color flow imaging shows all veins to be compressible with [id number]-[id number]-soiy color filling. Pulsatile and phasic flow is present within all upper extremity deep and superficial veins examined. IMPRESSION: There is no deep vein or superficial vein thrombosis.
--- NOTE | 2024-04-30 16:47 | RAD REPORT ---
EXAMINATION: CTA CHEST PE CLINICAL INDICATION: PAIN TECHNIQUE: This examination was performed according to an angiographic protocol with 3D post-processi ng. This involves 3D reconstructions, MIPs, volume rendered images and/or shaded surface rendering. One or more of the following dose reduction techniques were used: Automated exposure control, adjustm ent of the mA and/or kV according to patient size, and/or iterative reconstruction. Unless otherwise specified, incidental findings do not require dedicated imaging follow-up. COMPARISON: No prior exam. FINDINGS: PULMONARY ARTERIES: Normal caliber. No evidence of pulmonary emboli to the subsegmental level. THORACIC AORTA: Normal caliber and configuration. LUNGS: No evidence of airspace or interstitial process. Small right lung base calcified granulomata.. PLEURA: No pleural effusion. No pneumothorax. MEDIASTINUM AND LYMPH NODES: No mediastinal mass or fluid collection. Normal size mediastinal, hilar, and axillary lymph nodes. OSSEOUS STRUCTURES AND CHEST WALL: Intact. UPPER ABDOMEN: No significant abnormalities. IMPRESSION: No evidence of pulmonary emboli to the subsegmental level.
--- NOTE | 2024-04-30 16:48 | RAD REPORT ---
EXAMINATION: CT CERVICAL SPINE WITHOUT CONTRAST HISTORY: PAIN COMPARISON: None TECHNIQUE: Multiple contiguous axial images were obtained in a CT of the cervical spine without IV co ntrast. Sagittal and coronal reformats were performed. One or more of the following dose reduction techniques were used: Automated exposure control, adjustment of the mA and kV according to patient si ze, and iterative reconstruction. Unless otherwise specified, incidental findings do not require dedicated imaging follow-up. FINDINGS: The vertebral bodies and intervertebral discs demonstrate normal height and alignment without fractu re or subluxation. No significant degenerative changes are present. No prevertebral soft tissue swelling is seen. The posterior facets are well aligned. Normal alignment of the skull base with the cervical spine is seen. The odontoid appears normal and the lateral masses are symmetric. The lung apices are unremarkable. IMPRESSION: No evidence of acute osseous abnormality of the cervical spine.
--- NOTE | 2024-04-30 17:03 | ER ---
Nurse's Notes [facility] Name: Laurie Trammell Age: 78 yrs Sex: Female : 1945 Arrival Date: 04/30/2024 Time: 13:41 Bed 19 Private MD: Diagnosis: Cervical disc disorder with radiculopathy;Radiculopathy, cervical region;Olecranon bursitis, right elbow-non infectious;Unspecified symptoms and signs involving the musculoskeletal system Presentation: 04/30 14:00 Chief complaint: Patient states: swelling to R wrist x 5 days and elbow swelling x 2 ss days. Coronavirus screen: Client denies travel out of the [place] in the last 14 days. Ebola Screen: Patient denies exposure to infectious person. Patient denies travel to an Ebola-affected area in the 21 days before illness onset. Initial Sepsis Screen: Does the patient meet any 2 criteria? No. Patient's initial sepsis screen is negative. Does the patient have a suspected source of infection? No. Patient's initial sepsis screen is negative. Risk Assessment: Do you want to hurt yourself or someone else? Patient reports no desire to harm self or others. Onset of symptoms was April 25, 2024. 14:00 Method Of Arrival: Ambulatory ss 14:00 Acuity: NOEMY 3 ss Historical: - Allergies: 14: No Known Allergies; ss - PMHx: 14:01 Diabetes - NIDDM; Hypertension; ss - Immunization history:: Adult Immunizations not up to date. - Infectious Disease History:: Denies. - Social history:: Smoking status: Patient denies any tobacco usage or history of. - Family history:: not pertinent. Screenin:35 [facility] ED Fall Risk Assessment (Adult) History of falling in the last 3 months, db including since admission No falls in past 3 months (0 pts) Confusion or Disorientation No (0 pts) Intoxicated or Sedated No (0 pts) Impaired Gait Yes (1 pt) Mobility Assist Device Used Yes (1 pt) Altered Elimination No (0 pt) Score/Fall Risk Level 0 - 2 = Low Risk Oriented to surroundings, Maintained a safe environment. Abuse screen: Denies threats or abuse. Denies injuries from another. Nutritional screening: No deficits noted. Tuberculosis screening: No symptoms or risk factors identified. Assessment: 14:35 Reassessment: Patient appears in no apparent distress at this time. Patient and/or db family updated on plan of care and expected duration. Pain level reassessed. Patient is alert, oriented x 3, equal unlabored respirations, skin warm/dry/pink. General: Appears in no apparent distress. comfortable, Behavior is calm, cooperative. Pain: Complains of pain in right arm. Neuro: Level of Consciousness is awake, alert, obeys commands, Oriented to person, place, time, situation. Respiratory: Airway is patent Respiratory effort is even, unlabored, Respiratory pattern is regular, symmetrical. Musculoskeletal: Reports weakness in right hand numbness in right hand. 15:30 Reassessment: Patient appears in no apparent distress at this time. Patient and/or db family updated on plan of care and expected duration. Pain level reassessed. Patient is alert, oriented x 3, equal unlabored respirations, skin warm/dry/pink. STUDENT NURSE IS AT PATIENT BEDSIDE. 16:47 Reassessment: Patient appears in no apparent distress at this time. Patient and/or db family updated on plan of care and expected duration. Pain level reassessed. Patient is alert, oriented x 3, equal unlabored respirations, skin warm/dry/pink. PATIENT PROVIDED DIET STARRY. NOTIFIED DR. DENG Patient states feeling better. 17:16 Reassessment: Patient appears in no apparent distress at this time. Patient and/or db family updated on plan of care and expected duration. Pain level reassessed. Patient is alert, oriented x 3, equal unlabored respirations, skin warm/dry/pink. Vital Signs: 14:00 BP 166 / 69; Pulse 72; Resp 16; Temp 98.1(TE); Pulse Ox 99% on R/A; Weight 70.76 kg; ss Height 6 ft. 2 in. ; Pain 6/10; 14:35 BP 179 / 97; Pulse 76; Resp 16; Pulse Ox 96% on R/A; db 15:00 BP 138 / 42; Pulse 61; Resp 20; Pulse Ox 96% on R/A; db 15:30 BP 151 / 64; Pulse 63; Resp 20; Pulse Ox 96% on R/A; db 16:00 BP 138 / 54; Pulse 67; Resp 16; Pulse Ox 95% on R/A; db 17:05 BP 180 / 64; Pulse 62; Resp 20; Pulse Ox 96% on R/A; db 14:00 Body Mass Index 20.03 (70.76 kg, 187.96 cm) ss 14:00 Pain Scale: Adult ss ED Course: 13:45 Patient arrived in ED. mr 13:47 Santos Deng MD is Attending Physician. [facility] 14:01 Triage completed. ss 14:01 Arm band placed on left wrist. ss 14:28 Viridiana Huang, RN is Primary Nurse. db 14:43 Patient has correct armband on for positive identification. Bed in low position. Call db light in reach. Side rails up X 1. Client placed on continuous cardiac and pulse oximetry monitoring. NIBP monitoring applied. hospital monitor on. Pulse ox on. NIBP on. Pillow given. 14:43 Initial lab(s) drawn, by me, sent to lab. EKG done, by ED staff, reviewed by Santos Deng MD. Inserted saline lock: 20 gauge in left antecubital area, using aseptic technique. Blood collected. Flushed with 10 mL NS. 15:11 XRAY Chest (1 view) In Process Unspecified. EDMS 15:52 EKG done. db 15:53 UPPER EXTREMITY VENOUS UNILATE In Process Unspecified. EDMS 16:35 CT Chest For PE Angio In Process Unspecified. EDMS 16:35 CT C Spine In Process Unspecified. EDMS 17:02 Ramy Pan MD is Referral Physician. [facility] 17:16 Provided Education on: DISCHARGE AND FOLLOWUP. db 17:16 No provider procedures requiring assistance completed. IV discontinued, intact, db bleeding controlled, No redness/swelling at site. Administered Medications: 15:35 Drug: Ketorolac IVP 15 mg IVP once Route: IVP; Site: left antecubital; db 17:17 Follow up: Response: No adverse reaction; Pain is decreased db 15:35 Drug: Decadron - Dexamethasone IVP 10 mg IVP once Route: IVP; Site: left antecubital; db 17:17 Follow up: Response: No adverse reaction db Medication: 14:35 VIS not applicable for this client. db Outcome: 17:02 Discharge ordered by . kayleen 17:16 Discharged to home ambulatory, db 17:16 Condition: stable 17:16 Discharge instructions given to patient, Instructed on discharge instructions, follow up and referral plans. Prescriptions given X 4, 17:17 Patient left the ED. db Signatures: Dispatcher [employer] EDSantos Calderon MD MD cha Rivera Anne-Marie, [facility] Reg Denai Shay, TENISHA RN Viridiana Gore RN RN db
--- NOTE | 2024-04-30 17:03 | EDPHYS ---
Physician Documentation [facility] Name: Laurie Trammell Age: 78 yrs Sex: Female : 1945 Arrival Date: 04/30/2024 Time: 13:41 Bed 19 Private MD: ED Physician Santos Ch HPI: 04/30 14:51 This 78 yrs old Female presents to ER via Ambulatory with complaints of Arm kayleen Pain, Shoulder Pain. 14:51 The patient or guardian complains of decreased range of motion, pain. The complaints kayleen affect the anterior aspect of right shoulder, right bicep, dorsal aspect of right forearm, posterior aspect of right shoulder, right tricep and palmar aspect of right forearm. Context: The problem was sustained at an unknown location, resulted from unknown cause. Onset: The symptoms/episode began/occurred 2 day(s) ago. Treatment prior to arrival includes: no previous treatment. Modifying factors: The symptoms are alleviated by nothing. the symptoms are aggravated by nothing. Associated signs and symptoms: The patient has no apparent associated signs or symptoms. Severity of symptoms: At their worst the symptoms were moderate, in the emergency department the symptoms are unchanged. The patient has not experienced similar symptoms in the past. Historical: - Allergies: 14:01 No Known Allergies; ss - PMHx: 14:01 Diabetes - NIDDM; Hypertension; ss - Immunization history:: Adult Immunizations not up to date. - Infectious Disease History:: Denies. - Social history:: Smoking status: Patient denies any tobacco usage or history of. - Family history:: not pertinent. ROS: 14:51 Constitutional: Negative for fever, chills, and weight loss, Eyes: Negative for injury, kayleen pain, redness, and discharge, Neck: Negative for injury, pain, and swelling, Cardiovascular: Negative for chest pain, palpitations, and edema, Respiratory: Negative for shortness of breath, cough, wheezing, and pleuritic chest pain, Abdomen/GI: Negative for abdominal pain, nausea, vomiting, diarrhea, and constipation, Back: Negative for injury and pain, : Negative for injury, bleeding, discharge, and swelling, MS/Extremity: Negative for injury and deformity, Skin: Negative for injury, rash, and discoloration, Neuro: Negative for headache, weakness, numbness, tingling, and seizure, Psych: Negative for depression, anxiety, suicide ideation, homicidal ideation, and hallucinations, Allergy/Immunology: Negative for hives, rash, and allergies, Endocrine: Negative for neck swelling, polydipsia, polyuria, polyphagia, and marked weight changes, Hematologic/Lymphatic: Negative for swollen nodes, abnormal bleeding, and unusual bruising, 14:51 Neck: Positive for pain with movement, pain at rest, 14:51 MS/extremity: Positive for pain, swelling, of the right antecubital area, right wrist and right elbow, Exam: 14:51 Constitutional: This is a well developed, well nourished patient who is awake, alert, kayleen and in no acute distress. Head/Face: Normocephalic, atraumatic. Eyes: Pupils equal round and reactive to light, extra-ocular motions intact. Lids and lashes normal. Conjunctiva and sclera are non-icteric and not injected. Cornea within normal limits. Periorbital areas with no swelling, redness, or edema. ENT: Nares patent. No nasal discharge, no septal abnormalities noted. Tympanic membranes are normal and external auditory canals are clear. Oropharynx with no redness, swelling, or masses, exudates, or evidence of obstruction, uvula midline. Mucous membranes moist. Neck: Trachea midline, no thyromegaly or masses palpated, and no cervical lymphadenopathy. Supple, full range of motion without nuchal rigidity, or vertebral point tenderness. No Meningismus. Chest/axilla: Normal chest wall appearance and motion. Nontender with no deformity. No lesions are appreciated. Cardiovascular: Regular rate and rhythm with a normal S1 and S2. No gallops, murmurs, or rubs. Normal PMI, no JVD. No pulse deficits. Respiratory: Lungs have equal breath sounds bilaterally, clear to auscultation and percussion. No rales, rhonchi or wheezes noted. No increased work of breathing, no retractions or nasal flaring. Abdomen/GI: Soft, non-tender, with normal bowel sounds. No distension or tympany. No guarding or rebound. No evidence of tenderness throughout. Back: No spinal tenderness. No costovertebral tenderness. Full range of motion. Skin: Warm, dry with normal turgor. Normal color with no rashes, no lesions, and no evidence of cellulitis. MS/ Extremity: Pulses equal, no cyanosis. Neurovascular intact. Full, normal range of motion., bilateral aka Neuro: Awake and alert, GCS 15, oriented to person, place, time, and situation. Cranial nerves II-XII grossly intact. Motor strength 5/5 in all extremities. Sensory grossly intact. Cerebellar exam normal. Normal gait. Psych: Awake, alert, with orientation to person, place and time. Behavior, mood, and affect are within normal limits. 14:51 ECG was reviewed by the Attending Physician. 16:39 ECG was reviewed by the Attending Physician. [facility] Vital Signs: 14:00 BP 166 / 69; Pulse 72; Resp 16; Temp 98.1(TE); Pulse Ox 99% on R/A; Weight 70.76 kg; ss Height 6 ft. 2 in. ; Pain 6/10; 14:35 BP 179 / 97; Pulse 76; Resp 16; Pulse Ox 96% on R/A; db 15:00 BP 138 / 42; Pulse 61; Resp 20; Pulse Ox 96% on R/A; db 15:30 BP 151 / 64; Pulse 63; Resp 20; Pulse Ox 96% on R/A; db 16:00 BP 138 / 54; Pulse 67; Resp 16; Pulse Ox 95% on R/A; db 17:05 BP 180 / 64; Pulse 62; Resp 20; Pulse Ox 96% on R/A; db 14:00 Body Mass Index 20.03 (70.76 kg, 187.96 cm) ss 14:00 Pain Scale: Adult ss MDM: 13:47 Medical Screening Exam initiated [facility] 14:55 Differential diagnosis: contusion, tendonitis. Data reviewed: vital signs, nurses [facility] notes, lab test result(s), EKG, radiologic studies, CT scan, plain films. Consideration of Admission/Observation Escalation of care including admission/observation considered. I considered the following discharge prescriptions or medication management in the emergency department Medications were administered in the Emergency Department. See MAR. Independent interpretation of the following test(s) in the Emergency Department EKG: See my EKG interpretation above. Test considered but Not performed: Ultrasound no carotid doppler. Historians other than the Patient: pt well informed. Care significantly affected by the following chronic conditions: Diabetes, Hypertension. 04/30 13:48 Order name: Basic Metabolic Panel; Complete Time: 16:05 [facility] 04/30 13:48 Order name: CBC with Diff; Complete Time: 16:05 [facility] 04/30 13:48 Order name: LFT's; Complete Time: 16:05 [facility] 04/30 13:48 Order name: Magnesium; Complete Time: 16:05 [facility] 04/30 13:48 Order name: NT PRO-BNP; Complete Time: 16:05 [facility] 04/30 13:48 Order name: PT-INR; Complete Time: 16:05 [facility] 04/30 13:48 Order name: Troponin HS; Complete Time: 16:05 [facility] 04/30 13:48 Order name: XRAY Chest (1 view); Complete Time: 16:05 [facility] 04/30 14:50 Order name: CT Chest For PE Angio; Complete Time: 17:01 [facility] 04/30 14:50 Order name: CT C Spine; Complete Time: 17:01 [facility] 04/30 14:54 Order name: UPPER EXTREMITY VENOUS UNILATE; Complete Time: 16:05 [facility] 04/30 13:48 Order name: EKG; Complete Time: 13:48 [facility] 04/30 13:48 Order name: Cardiac monitoring; Complete Time: 14:44 [facility] 04/30 13:48 Order name: EKG - Nurse/Tech; Complete Time: 14:44 [facility] 04/30 13:48 Order name: IV Saline Lock; Complete Time: 14:44 [facility] 04/30 13:48 Order name: Labs collected and sent; Complete Time: 14:44 [facility] 04/30 13:48 Order name: O2 Per Protocol; Complete Time: 14:44 [facility] 04/30 13:48 Order name: O2 Sat Monitoring; Complete Time: 14:44 [facility] EC:51 Rate is 56 beats/min. Rhythm is regular. QRS [place] is Normal. NC interval is normal. QRS kayleen interval is normal. QT interval is normal. No Q waves. T waves are Normal. No ST changes noted. Clinical impression: Sinus bradycardia. Interpreted by me. Reviewed by me. 16:39 Rate is 67 beats/min. Rhythm is regular. QRS [place] is Normal. NC interval is normal. QRS kayleen interval is normal. QT interval is normal. No Q waves. T waves are Normal. No ST changes noted. Clinical impression: Normal ECG and No evidence of ischemia. Interpreted by me. Reviewed by me. Administered Medications: 15:35 Drug: Ketorolac IVP 15 mg IVP once Route: IVP; Site: left antecubital; db 17:17 Follow up: Response: No adverse reaction; Pain is decreased db 15:35 Drug: Decadron - Dexamethasone IVP 10 mg IVP once Route: IVP; Site: left antecubital; db 17:17 Follow up: Response: No adverse reaction db Disposition Summary: 04/30/24 17:02 Discharge Ordered Notes: Location: Home kayleen Problem: new kayleen Symptoms: have improved kayleen Condition: Stable kayleen Diagnosis - Cervical disc disorder with radiculopathy kayleen - Radiculopathy, cervical region kayleen - Olecranon bursitis, right elbow - non infectious kayleen - Unspecified symptoms and signs involving the musculoskeletal system kayleen Followup: kayleen - With: Private Physician - When: 2 - 3 days - Reason: Recheck today's complaints, Continuance of care, Re-evaluation by your physician Followup: kayleen - With: Ramy Pan MD - When: 2 - 3 days - Reason: Recheck today's complaints, Re-evaluation by your physician Discharge Instructions: - Discharge Summary Sheet kayleen - Bursitis kayleen - Cervical Radiculopathy kayleen - Musculoskeletal Pain kayleen - Elbow Bursitis kayleen - Radicular Pain [facility] Forms: - Medication Reconciliation Form kayleen - Antibiotic Education kayleen - Prescription Opioid Use kayleen - Patient Portal Instructions [facility] - Leadership Thank You Letter [facility] Prescriptions: - acetaminophen-codeine 300-30 mg Oral tablet - take 2 tablet ORAL route every 6 hours as needed for pain; 20 tablet; Refills: kayleen 0, Product Selection Permitted - dexamethasone 4 mg Oral tablet - take 1 tablet ORAL route daily; 5 tablet; Refills: 0, Product Selection kayleen Permitted - diclofenac sodium 50 mg Oral tablet, delayed release (enteric coated) - take 1 tablet ORAL route 3 times per day; 21 tablet; Refills: 0, Product kayleen Selection Permitted - methocarbamol 750 mg Oral tablet - take 1 tablet ORAL route 4 times per day; 26 tablet; Refills: 0, Product [facility] Selection Permitted Signatures: Dispatcher [employer] EDSantos Calderon MD MD cha Blanchard, Shelby, RN RN ss Viridiana Huang RN RN db Corrections: (The following items were deleted from the chart) 14:51 14:51 Chest For PE Angio+CT.RAD.BRZ ordered. EDMS EDMS 14:51 14:51 Extremity Venous Uni Ltd+US.RAD.BRZ ordered. EDMS EDMS 14:51 14:51 C Spine Wo Con+CT.RAD.BRZ ordered. EDMS EDMS
[2024-04-30 20:13] VITALS: TEMP 98.1
[2024-04-30 20:32] VITALS: BP 180/64; O2SAT 96
--- NOTE | 2024-05-01 10:18 | EKG ---
Test Date: 2024-04-30 Test Time: 14:34:03 Debate Director: JOSE RAUL MEASUREMENT RESULTS: Intervals: Rate: 56 TX: QRSD: 84 QT: 398 QTc: 384 [place]: P: TX: QRS: -14 T: 63 INTERPRETIVE STATEMENTS: Atrial fibrillation with slow ventricular response Abnormal ECG Compared to ECG 12/07/2023 19:09:59 Sinus rhythm no longer present Myocardial infarct finding no longer present Electronically Signed On 05-01-24 10:17:25 PLATE MOLDER by Simon Crump
== END 2024-04-30 17:17 | disposition home or self-care (01) ==
LOC: ER 13:41
DX: M54.12 Radiculopathy, cervical region (principal); M70.21 Olecranon bursitis, right elbow; R29.91 Unspecified symptoms and signs involving the musculoskeletal system; E11.9 Type 2 diabetes mellitus without complications; I10 Essential (primary) hypertension
CPT/HCPCS: 93005 ×2; 85025; 80048; 36415; 83735; 85610; 80076; 84484; 83880; 72125; 71275; 71045; 93971; 96375; 96374; 99285; Q9967; J1100